=== PATIENT | male | born 1985 | race African-American/Black ===

== ENCOUNTER 2016-06-09 20:10 | Observation (INO) | payer BC ==
[~2016-06-09] VITALS: Ht 167.6 cm; Wt 119.5 kg
[2016-06-09] MEDS ORDERED: SODIUM CHLORIDE 0.9% 1000ML 1,000 ML IV STA (20:28)
[2016-06-09] MEDS ORDERED: ONDANSETRON INJ 2 MG/ML 2 ML VIAL IV STA (20:28)
[2016-06-09] MEDS ORDERED: KETOROLAC TROMETHAMINE 30 MG/ML VIAL IV STA (20:34)
[2016-06-09] MEDS: HYDROmorphone INJ 1 MG/ML SYR IV PRN ×3 (20:53→22:53)
[2016-06-09 21:12] LABS: BASO % 0.1 %; BASO ABS # 0.01 K/uL (0-0.2); COMPLETE YES; EOS % 0.5 %; HEMATOCRIT 45.1 % (42-52); IG% 0.2 %; LYMPH % 13.5 %; LYMPH ABS # 1.65 K/uL (1.2-3.4); MEAN CELL VOLUME 83.5 fL (80-100); MEAN CORPUSCULAR HEMOGLOBIN 30.2 pg (25-34); MEAN CORPUSCULAR HGB CONC 36.1 g/dl (32-36); MEAN PLATELET VOLUME 9.7 fL (7.4-10.4); MONO % 7.2 %; NEUT % 78.5 %; PLATELET COUNT 236 K/uL (130-400)
[2016-06-09 21:29] LABS: BUN/CREATININE RATIO 13.5 (10-20); CALCIUM 9.1 mg/dl (8.5-10.1); CREATININE 0.99 mg/dl (0.60-1.40); POTASSIUM 3.7 mmol/L (3.5-5.1)
--- NOTE | 2016-06-09 21:45 | DIAGNOSTIC IMAGING REPORT ---
Right upper quadrant ultrasound GALLBLADDER-ABD LIMITED CLINICAL HISTORY: RUQ, epigastric abd pain nausea TECHNIQUE: Ultrasound COMPARISON STUDY: None FINDINGS: Gallbladder is normal. Common bile duct 6 mm. Liver demonstrates fatty infiltration. Pancreas and right kidney are normal. IMPRESSION: Fatty infiltration of liver. Otherwise negative study Electronically signed by: Juan Ba M.D. 06/09/2016 9:43 PM Dictated Date/Time: 06/09/2016 9:42 PM
[2016-06-09] MEDS ORDERED: OPTIRAY 320 IV PRN (23:00)
--- NOTE | 2016-06-09 23:16 | DIAGNOSTIC IMAGING REPORT ---
CT SCAN OF THE ABDOMEN AND PELVIS WITH IV CONTRAST CLINICAL HISTORY: Vomiting. Upper abdominal pain. COMPARISON STUDY: Abdominal ultrasound dated 06/09/2016. TECHNIQUE: Following the IV administration of 115 cc of Optiray 320, CT scan of the abdomen and pelvis is performed from the lung bases to the proximal femora. Images are reviewed in the axial, sagittal, and coronal planes. IV contrast was administered without complication. Automated dose control exposure was utilized. CT DOSE: 1201.79 mGy.cm FINDINGS: Lung bases: The heart is normal in size and without pericardial effusion. The lung bases are clear. There is a tiny hiatal hernia. Liver: The contrast-enhanced liver is enlarged, measuring 22 cm in length. The liver demonstrates diffusely diminished attenuation consistent with hepatic steatosis. Fatty sparing is noted adjacent to gallbladder fossa. There is no intrahepatic biliary ductal dilatation. The hepatic veins and portal veins are patent. Gallbladder: Unremarkable. Spleen: Normal in size and attenuation. Pancreas: Unremarkable. Adrenal glands: Unremarkable. Kidneys: The contrast enhanced kidneys are normal in size and without hydronephrosis. The kidneys enhance symmetrically. Abdominal vasculature: The abdominal aorta is normal in course and caliber. Bowel: The small bowel and colon are normal in course and caliber. The distal appendix is mildly distended and fluid-filled, measuring up to 1.3 cm in diameter as seen on image #289. There is minimal periappendiceal inflammatory stranding. Peritoneum: There is no intraperitoneal free air or abdominal ascites. There is a small fat-containing umbilical hernia. Lymphadenopathy: None. Pelvic viscera: The bladder, prostate, and seminal vesicles are normal as visualized. Skeletal structures: No lytic or blastic lesions are seen. IMPRESSION: 1. Findings are concerning for mild acute appendicitis. Surgical consultation is advised. 2. No intraperitoneal free air is identified and there is no evidence of abscess. 3. Hepatomegaly and hepatic steatosis. Electronically signed by: Sukhdev Richards M.D. 06/09/2016 11:15 PM Dictated Date/Time: 06/09/2016 11:09 PM
[2016-06-09] MEDS ORDERED: SODIUM CHLORIDE 0.9% 1000ML 2,000 ML IV STA (23:31)
[2016-06-09] MEDS ORDERED: CEFOXITIN SOD 2 GM VIAL IV STA (23:37)
[2016-06-10] VITALS (11 sets, daily range): BP systolic 101–123; BP diastolic 61–73; PULSE 79–111; TEMP 36.6–37.2; O2SAT 93–100; Ht 167.6 cm; Wt 119.5 kg
[2016-06-10] MEDS: HYDROmorphone INJ 1 MG/ML SYR IV PRN (00:15)
[2016-06-10] MEDS ORDERED: BUPIVACAINE/EPINEPHRINE 0.5% MPF 1:200,000 30 ML VIAL ONE (00:18)
--- NOTE | 2016-06-10 00:26 | History and Physical ---
History & Physical Date Jun 10, 2016. Chief Complaint Abdominal pain History of Present Illness The patient is a 30 year old male with appendicitis. He has complaints of worsening abdominal pain since last night. His pain got worse this morning with sharp epigastric and RUQ abdominal pains. He has never experienced pain like this before. The patient rates his pain as a 9/10 in severity. He is also experiencing nausea. He had two episodes of vomiting today. He denies any sick contacts. He denies any personal history of abdominal surgery. Pt denies LOC, headache, fevers, chills, diaphoresis, visual changes, neck pain, chest pain, breathing difficulties, back pain, melena, hematochezia, urinary symptoms, numbness, weakness, lymphadenopathy, rash, or other complaints. CT scan shows a 1.3 cm appendix with inflammatory changes. Past Medical/Surgical History Medical Problems: (1) No significant medical problems Additional History Hepatic Disease: No Endocrine Disorder: No Kidney Disease: No Hypertension: No Heart Disease: No Bleeding Tendencies: No Infectious Diseases: No Allergies Coded Allergies: No Known Allergies (Unverified , 06/09/16) Home Medications No Active Prescriptions or Reported Meds Physical Examination Skin: warm/dry, no rash Eyes: normal inspection, EOMI, sclerae normal ENT: normal ENT inspection Head: normocephalic, atraumatic Neck: supple, no adenopathy, trachea midline Respiratory/Chest: lungs clear Cardiovascular: regular rate, rhythm, no edema, no murmur Abdomen / GI: normal bowel sounds, + pertinent finding (RLQ tenderness) Back: normal inspection Extremities: normal inspection Genitourinary - Male: normal male genitalia Neurologic/Psych: no motor/sensory deficits, alert, normal reflexes, oriented x 3 Addiitonal Comments: CT SCAN OF THE ABDOMEN AND PELVIS WITH IV CONTRAST CLINICAL HISTORY: Vomiting. Upper abdominal pain. COMPARISON STUDY: Abdominal ultrasound dated 06/09/2016. TECHNIQUE: Following the IV administration of 115 cc of Optiray 320, CT scan of the abdomen and pelvis is performed from the lung bases to the proximal femora. Images are reviewed in the axial, sagittal, and coronal planes. IV contrast was administered without complication. Automated dose control exposure was utilized. CT DOSE: 1201.79 mGy.cm FINDINGS: Lung bases: The heart is normal in size and without pericardial effusion. The lung bases are clear. There is a tiny hiatal hernia. Liver: The contrast-enhanced liver is enlarged, measuring 22 cm in length. The liver demonstrates diffusely diminished attenuation consistent with hepatic steatosis. Fatty sparing is noted adjacent to gallbladder fossa. There is no intrahepatic biliary ductal dilatation. The hepatic veins and portal veins are patent. Gallbladder: Unremarkable. Spleen: Normal in size and attenuation. Pancreas: Unremarkable. Adrenal glands: Unremarkable. Kidneys: The contrast enhanced kidneys are normal in size and without hydronephrosis. The kidneys enhance symmetrically. Abdominal vasculature: The abdominal aorta is normal in course and caliber. Bowel: The small bowel and colon are normal in course and caliber. The distal appendix is mildly distended and fluid-filled, measuring up to 1.3 cm in diameter as seen on image #289. There is minimal periappendiceal inflammatory stranding. Peritoneum: There is no intraperitoneal free air or abdominal ascites. There is a small fat-containing umbilical hernia. Lymphadenopathy: None. Pelvic viscera: The bladder, prostate, and seminal vesicles are normal as visualized. Skeletal structures: No lytic or blastic lesions are seen. IMPRESSION: 1. Findings are concerning for mild acute appendicitis. Surgical consultation is advised. 2. No intraperitoneal free air is identified and there is no evidence of abscess. 3. Hepatomegaly and hepatic steatosis. Diagnosis Appendicitis ASA Classification: ASA Class II Plan of Treatment -IVF -IV abx -to OR for lap appendectomy
[2016-06-10] MEDS ORDERED: MoRPHine SULFATE 2 MG/ML CARP IV PRN (00:30)
[2016-06-10] MEDS ORDERED: PROMETHAZINE HCL INJ 25 MG in SODIUM CHLORIDE 0.9% 50ML 50 ML IV PRN (00:30)
[2016-06-10] MEDS ORDERED: ACETAMINOPHEN 325 MG TAB PO PRN (00:30)
[2016-06-10] MEDS ORDERED: ONDANSETRON INJ 2 MG/ML 2 ML VIAL IV PRN ×2 (00:30→02:45)
[2016-06-10] MEDS ORDERED: ROCURONIUM BROMID 50MG/5ML SYR ONE (00:43)
[2016-06-10] MEDS ORDERED: LIDOCAINE HCL 2% 2 ML VIAL (20MG/ML) ONE (00:43)
[2016-06-10] MEDS ORDERED: ONDANSETRON INJ 2 MG/ML 2 ML VIAL ONE (00:43)
[2016-06-10] MEDS ORDERED: PROPOFOL IV EMULSION 10 MG/ML 20 ML VIAL IV ONE (00:43)
[2016-06-10] MEDS ORDERED: MIDAZOLAM HCL 1 MG/ML 2ML VIAL ONE (00:44)
[2016-06-10] MEDS ORDERED: NEOSTIGMINE METHYLSULFATE 5 MG/5 ML SYR ONE (00:44)
[2016-06-10] MEDS ORDERED: FENTANYL CITRATE INJ 50 MCG/1 ML 2 ML VIAL ONE ×2 (00:45→01:21)
--- NOTE | 2016-06-10 02:08 | [facility] Post Operative Brief Note ---
Immediate Operative Summary Operative Date Jun 10, 2016. Pre-Operative Diagnosis Acute appendicitis Post-Operative Diagnosis Acute appendicitis Procedure(s) Performed Laparoscopic Appendectomy Surgeon Dr. Zamora Web Application Dev Specialist Surgeon(s) none Estimated Blood Loss 50cc Findings retrocecal appendicitis Specimens A: Appendix Drains none Anesthesia GETA w/marcaine Complication(s) None Disposition Recovery Room / PACU
[2016-06-10] MEDS ORDERED: IV FLUIDS COMPLETED PRN (02:15)
--- NOTE | 2016-06-10 02:15 | EMERGENCY ROOM VISIT NOTE ---
History Report prepared by Munira: Nikki Ramos Under the Supervision of: Dr. Foster Horvath M.D. First contact with patient: 20:15 Chief Complaint: ABDOMINAL PAIN Stated Complaint: AB PAIN Nursing Triage Summary: patient has been having abd pain since yesterday morning. was at [facility] for concert and vomit x2, brought in by EMS History of Present Illness The patient is a 30 year old male who presents to the Emergency Room with complaints of worsening abdominal pain since last night. The patient states, "I think I ate something bad yesterday." Last night while he was sleeping he woke up with vomit in his mouth and went back to sleep. He woke up this morning with sharp epigastric and RUQ abdominal pains. He has never experienced pain like this before. The patient rates his pain as a 9/10 in severity. He is also experiencing nausea. He had two episodes of vomiting today. He felt better after vomiting. He was able to eat a [employer] sandwich for lunch and his symptoms did not seem to worsen after eating. He has never had pain like this before. The patient had some diarrhea earlier this morning that has resolved. He denies any sick contacts. He denies any personal history of abdominal surgery. Pt denies LOC, headache, fevers, chills, diaphoresis, visual changes, neck pain, chest pain, breathing difficulties, back pain, melena, hematochezia, urinary symptoms, numbness, weakness, lymphadenopathy, rash, or other complaints. Source of History: patient Onset: last night Position: abdomen Symptom Intensity: 9/10 Quality: sharp Timing: worsening Modifying Factors (Relieving): other (vomiting) Associated Symptoms: + diarrhea, + nausea, + vomiting Review of Systems See HPI for pertinent positives and negatives. A total of ten systems were reviewed and were otherwise negative. Past Medical & Surgical Medical Problems: (1) Appendicitis (2) No significant medical problems Family History Diabetes mellitus Heart disease Hypertension Stroke Social History Smoking Status: Never Smoker Marital Status: Housing Status: lives with significant other Current/Historical Medications No Active Prescriptions or Reported Meds Allergies Coded Allergies: No Known Allergies (Unverified , 06/09/16) Physical Exam Vital Signs Date Time Temp Pulse Resp B/P Pulse Ox O2 Delivery O2 Flow Rate FiO2 06/10/16 00:41 91 16 126/71 99 06/09/16 22:15 98 18 120/66 98 Room Air 06/09/16 21:11 87 06/09/16 20:31 36.8 89 18 136/100 98 Room Air Physical Exam GENERAL: Awake, alert, very uncomfortable-appearing, in no distress HENT: Normocephalic, atraumatic. Oropharynx unremarkable. EYES: Normal conjunctiva. Sclera non-icteric. NECK: Supple. No nuchal rigidity. FROM. No JVD. RESPIRATORY: Clear to auscultation. CARDIAC: Regular rate, normal rhythm. Extremities warm and well perfused. Pulses equal. ABDOMEN: Soft, non-distended. RUQ and epigastric tenderness. No rebound or guarding. No masses. RECTAL: Deferred. MUSCULOSKELETAL: Chest examination reveals no tenderness. The back is symmetrical on inspection without obvious abnormality. There is no CVA tenderness to palpation. No joint edema. LOWER EXTREMITIES: Calves are equal size bilaterally and non-tender. No edema. No discoloration. NEURO: Normal sensorium. No sensory or motor deficits noted. SKIN: No rash or jaundice noted. Medical Decision & Procedures ER Provider Diagnostic Interpretation: Radiology results as stated below per my review and radiologist interpretation: Right upper quadrant ultrasound GALLBLADDER-ABD LIMITED CLINICAL HISTORY: RUQ, epigastric abd pain nausea TECHNIQUE: Ultrasound COMPARISON STUDY: None FINDINGS: Gallbladder is normal. Common bile duct 6 mm. Liver demonstrates fatty infiltration. Pancreas and right kidney are normal. IMPRESSION: Fatty infiltration of liver. Otherwise negative study Electronically signed by: Juan Ba M.D. 06/09/2016 9:43 PM Dictated Date/Time: 06/09/2016 9:42 PM Laboratory Results 06/09/16 20:57 Red Blood Count 5.40, Mean Corpuscular Volume 83.5, Mean Corpuscular Hemoglobin 30.2, Mean Corpuscular Hemoglobin Concent 36.1, Mean Platelet Volume 9.7, Neutrophils (%) (Auto) 78.5, Lymphocytes (%) (Auto) 13.5, Monocytes (%) (Auto) 7.2, Eosinophils (%) (Auto) 0.5, Basophils (%) (Auto) 0.1, Neutrophils # (Auto) 9.58, Lymphocytes # (Auto) 1.65, Monocytes # (Auto) 0.88, Eosinophils # (Auto) 0.06, Basophils # (Auto) 0.01 06/09/16 20:57 Test 06/09/16 20:57 White Blood Count 12.20 K/uL (4.8-10.8) Red Blood Count 5.40 M/uL (4.7-6.1) Hemoglobin 16.3 g/dL (14.0-18.0) Hematocrit 45.1 % (42-52) Mean Corpuscular Volume 83.5 fL (80-100) Mean Corpuscular Hemoglobin 30.2 pg (25-34) Mean Corpuscular Hemoglobin Concent 36.1 g/dl (32-36) Platelet Count 236 K/uL (130-400) Mean Platelet Volume 9.7 fL (7.4-10.4) Neutrophils (%) (Auto) 78.5 % Lymphocytes (%) (Auto) 13.5 % Monocytes (%) (Auto) 7.2 % Eosinophils (%) (Auto) 0.5 % Basophils (%) (Auto) 0.1 % Neutrophils # (Auto) 9.58 K/uL (1.4-6.5) Lymphocytes # (Auto) 1.65 K/uL (1.2-3.4) Monocytes # (Auto) 0.88 K/uL (0.11-0.59) Eosinophils # (Auto) 0.06 K/uL (0-0.5) Basophils # (Auto) 0.01 K/uL (0-0.2) RDW Standard Deviation 40.4 fL (36.4-46.3) RDW Coefficient of Variation 13.5 % (11.5-14.5) Immature Granulocyte % (Auto) 0.2 % Immature Granulocyte # (Auto) 0.02 K/uL (0.00-0.02) Anion Gap 8.0 mmol/L (3-11) Est Creatinine Clear Calc Drug Dose 128.1 ml/min Estimated GFR () 118.8 Estimated GFR (Non- 102.5 BUN/Creatinine Ratio 13.5 (10-20) Calcium Level 9.1 mg/dl (8.5-10.1) Total Bilirubin 0.6 mg/dl (0.2-1) Direct Bilirubin 0.1 mg/dl (0-0.2) Aspartate Amino Transf (AST/SGOT) 32 U/L (15-37) Alanine Aminotransferase (ALT/SGPT) 87 U/L (12-78) Alkaline Phosphatase 75 U/L (45-117) Total Protein 7.9 gm/dl (6.4-8.2) Albumin 4.2 gm/dl (3.4-5.0) Lipase 91 U/L (73-393) Laboratory results reviewed by me Medications Administered Medications (Trade) Dose Ordered Sig/Francy Route Start Time Stop Time Status Last Admin Dose Admin Sodium Chloride (Nss 1000ml) 1,000 ml @ 999 mls/hr Q1H1M STAT IV 06/09/16 20:28 06/09/16 21:28 DC 06/09/16 20:28 999 MLS/HR Ondansetron HCl (Zofran Inj) 4 mg NOW STAT IV 06/09/16 20:28 06/09/16 20:30 DC 06/09/16 20:53 4 MG Hydromorphone HCl (Dilaudid Inj) 1 mg Q15M PRN IV 06/09/16 20:30 06/10/16 01:29 DC 06/10/16 00:15 1 MG Ketorolac Tromethamine 10 mg 10 mg NOW STAT IV 06/09/16 20:34 06/09/16 20:35 DC 06/09/16 20:53 10 MG Sodium Chloride (Nss 1000ml) 2,000 ml @ 999 mls/hr Q2H1M STAT IV 06/09/16 23:31 06/10/16 01:29 DC 06/09/16 23:55 999 MLS/HR Cefoxitin Sodium (Mefoxin IV) 2,000 mg NOW STAT IV 06/09/16 23:37 06/09/16 23:38 DC 06/09/16 23:55 2,000 MG Bupivacaine HCl/ Epinephrine Bitart (Sensorcaine/ Epinephrine 0.5% Mpf 1:200,000) 30 ml STK-MED ONCE .ROUTE 06/10/16 00:18 06/10/16 00:22 DC 06/10/16 00:18 20 ML ED Course 2014: The patient was evaluated in room B3B. A complete history and physical exam was performed. 2027: Zofran 4 mg IV, NSS 1000 ml @ 999 mls/hr IV 2029: Dilaudid 1 mg IV - PRN 2033: Toradol 10 mg IV 2146: I reassessed the patient and he is feeling better. 2248: I updated the patient on his US results. He will be going for CT. The patient verbalized agreement. Medical Decision Triage Nursing notes reviewed. The patient's presentation and history were concerning for abdominal pain. Etiologies such as biliary pathology, appendicitis, diverticulitis, obstruction , inflammatory bowel disease, renal colic, PUD, pancreatitis, mesenteric ischemia, aortic pathology, infections, genitourinary, UTI, perforated viscus, as well as others were entertained. The patient was evaluated. He was uncomfortable. He was given Zofran, saline, and Dilaudid. On reassessment he was feeling better. The patient had a mild leukocytosis on CBC. Chemistry panel and remainder of labs are unremarkable. The patient underwent ultrasound imaging which was negative. On reassessment he was feeling increased pain again. He had tenderness on the right side of his abdomen, mostly upper. The patient underwent CT imaging and this was concerning for early appendicitis. The patient was given an additional 2 L of fluid. He was kept nothing by mouth. Consultation was made with general surgery. Mefoxin was requested and this was ordered. The patient was evaluated in the Emergency Room and admitted for further treatment of his acute appendicitis. The chart was completed utilizing [employer] Speech voice recognition software. Grammatical errors, random word insertions, pronoun errors, and incomplete sentences are an occasional consequence of this system due to software limitations, ambient noise, and hardware issues. Any formal questions or concerns about the content, text, or information contained within the body of this dictation should be directly addressed to the physician for clarification. [place] Drug Monitoring Program Search Results: no issues identified Impression Primary Impression: Appendicitis Scribe Attestation The scribe's documentation has been prepared under my direction and personally reviewed by me in its entirety. I confirm that the note above accurately reflects all work, treatment, procedures, and medical decision making performed by me. Departure Information Dispostion Being Evaluated By Surgeon Prescriptions No Active Prescriptions or Reported Meds Referrals No Doctor, Assigned (PCP) Patient Instructions [facility]
--- NOTE | 2016-06-10 02:43 | Anesthesiology Progress Note ---
Anesthesia Post Op Note Date & Time Jun 10, 2016 at 02:43 Vital Signs Pain Intensity: 6.0 Vital Signs Past 12 Hours Date Time Temp Pulse Resp B/P Pulse Ox O2 Delivery O2 Flow Rate FiO2 06/10/16 00:41 91 16 126/71 99 06/09/16 22:15 98 18 120/66 98 Room Air 06/09/16 21:11 87 06/09/16 20:31 36.8 89 18 136/100 98 Room Air Notes Mental Status: alert / awake / arousable, participated in evaluation Pt Amnestic to Procedure: Yes Nausea / Vomiting: adequately controlled Pain: adequately controlled Airway Patency, RR, SpO2: stable & adequate BP & HR: stable & adequate Hydration State: stable & adequate Anesthetic Complications: no major complications apparent
[2016-06-10] MEDS ORDERED: FENTANYL CITRATE INJ 50 MCG/1 ML 2 ML VIAL IV PRN (02:45)
[2016-06-10] MEDS ORDERED: ATROPINE SULFATE 0.1 MG/ML 5ML SYR IV PRN (02:45)
[2016-06-10] MEDS ORDERED: KETOROLAC TROMETHAMINE 30 MG/ML VIAL IV. PRN (02:45)
[2016-06-10] MEDS ORDERED: EpHEDrine SULFATE INJ 50 MG/ML AMP IV PRN (02:45)
--- NOTE | 2016-06-10 02:59 | OPERATIVE REPORT ---
DATE OF OPERATION: 06/10/2016 PREOPERATIVE DIAGNOSIS: Acute appendicitis. POSTOPERATIVE DIAGNOSIS: Acute retrocecal appendicitis. PROCEDURE PERFORMED: Laparoscopic appendectomy. SURGEON: Dr. Roberto Zamora. ADDRESSER: None. ANESTHESIA: General endotracheal with 0.5% Marcaine with epinephrine local. ESTIMATED BLOOD LOSS: 50 mL COMPLICATIONS: None. SPECIMENS: Appendix to pathology. INDICATION FOR PROCEDURE: This is a 30-year-old male who came in with diffuse abdominal pain, underwent a workup where a CT scan showed a dilated appendix with periappendiceal inflammation. He was counseled to undergo laparoscopic appendectomy. We talked about the risk of an open procedure, bleeding, blood vessel or bowel damage, abscess requiring drainage, and possible blood transfusion. He understands this and wishes to proceed. DESCRIPTION OF PROCEDURE: The patient was taken to the OR and underwent excellent general endotracheal anesthesia. His abdomen was prepped and draped in normal sterile fashion. A transverse supraumbilical incision was made and a Veress needle was inserted. Good pneumoperitoneum was achieved to 15 mmHg pressure. A visualized 11 port was placed. He had a large amount of intraabdominal fat. His cecum was identified. No obvious appendix was seen. A 5 suprapubic, a 5 right upper quadrant, and a 12 left lower quadrant ports were placed in normal fashion. The patient was then placed head down and rolled to the left. The cecum was found and the tenia was traced to appendix which was retrocecal. With tension on the base of the appendix, Harmonic scalpel was used to dissect the appendix free from its retrocecal position. Appendix was brought out and Harmonic scalpel was used to take down the mesoappendix. There was some bleeding which was somewhat difficult to control but was controlled using the Harmonic scalpel. Once this was done, the Harmonic scalpel was used to take the rest of the mesoappendix down to the base. The appendix was then transected and brought out with an Endobag. There was, in dissecting the appendix free from its retrocecal position, a tear made in the appendix, but the entire appendix was brought out with an Endobag and sent for pathologic evaluation. Then, the abdomen was irrigated out with 2 liters of saline. There was some bloody fluid. There was no active bleeding. The staple line appeared intact without any active bleeding. There was no more bleeding from the mesoappendix. Pelvis was normal. The terminal ileum also appeared to be normal. Once this was ensured, the ports were removed and pneumoperitoneum was decompressed. Vicryl was used to close the fascia, Vicryl was used to close the skin. Steri-Strips and benzoin were used to reinforce the incision. Sterile dressings were applied. The patient tolerated the procedure well with no complications, sent to post-recovery for a period of observation, and will be sent to floor for his care. I attest to the content of the Intraoperative Record and any orders documented therein. Any exceptio ns are noted below.
[2016-06-10] MEDS ORDERED: MoRPHine SULFATE 4 MG/ML 1 ML CARP\\VIAL IV PRN (04:00)
[2016-06-10] MEDS: LACTATED RINGER'S 1000ML 1,000 ML IV SCH ×3 (04:02→23:27)
[2016-06-10] MEDS: CEFOXITIN IV 2,000 MG in DEXTROSE 5% 50ML 50 ML IV SCH ×3 (06:37→21:46)
[2016-06-10] MEDS: OXYCODONE/ACETAMINOPHEN 5-325 TAB PO PRN ×2 (07:51→12:01)
[2016-06-10 09:39] LABS: EOS % 0.1 %; HEMATOCRIT 43.4 % (42-52); IG% 0.2 %; LYMPH % 5.2 %; LYMPH ABS # 0.84 K/uL (1.2-3.4); MEAN CELL VOLUME 83.9 fL (80-100); MEAN CORPUSCULAR HEMOGLOBIN 30.9 pg (25-34); MEAN PLATELET VOLUME 9.7 fL (7.4-10.4); NEUT % 86.5 %; PLATELET COUNT 227 K/uL (130-400); RED BLOOD COUNT 5.17 M/uL (4.7-6.1); WHITE BLOOD COUNT 16.09 K/uL (4.8-10.8)
[2016-06-10 09:45] LABS: COMPLETE YES; MEAN CORPUSCULAR HGB CONC 36.9 g/dl (32-36)
[2016-06-10] MEDS ORDERED: HYDROmorphone INJ 0.5 MG/0.5 ML SYR IV STA (09:52)
[2016-06-10 09:59] LABS: CALCIUM 8.5 mg/dl (8.5-10.1); CREATININE 0.96 mg/dl (0.60-1.40)
[2016-06-10] MEDS ORDERED: HYDROmorphone INJ 1 MG/ML SYR IV PRN (10:00)
[2016-06-10] MEDS ORDERED: HYDROmorphone INJ 0.5 MG/0.5 ML SYR IV PRN (10:00)
--- NOTE | 2016-06-10 10:49 | Surgery Progress Note ---
Surgery Progress Note Date of Service Jun 10, 2016. Subjective Post OP Day: 1 + complaints (chest pain which is better), + diet (liquids), + feeling well, + flatus, + pain controlled, No nausea, No vomiting Objective Vital Signs: Date Time Temp Pulse Resp B/P Pulse Ox O2 Delivery O2 Flow Rate FiO2 06/10/16 08:37 37.0 111 23 110/73 95 Room Air 06/10/16 07:25 Room Air 06/10/16 06:39 37.2 109 16 101/64 96 Room Air 06/10/16 05:40 36.8 102 16 103/63 100 Nasal Cannula 2.0 06/10/16 04:39 36.7 93 17 105/61 98 Nasal Cannula 2.0 06/10/16 04:10 36.6 85 16 112/72 99 Nasal Cannula 06/10/16 03:45 Nasal Cannula 2.0 06/10/16 03:45 36.7 79 16 104/66 Nasal Cannula 2.0 06/10/16 03:45 Nasal Cannula 2.0 06/10/16 03:40 36.7 79 16 104/66 96 Nasal Cannula 2.0 06/10/16 03:30 36.5 91 18 109/73 100 Nasal Cannula 3 06/10/16 03:15 36.5 89 20 128/71 100 Nasal Cannula 3 06/10/16 03:05 36.5 95 20 132/81 100 Nasal Cannula 3 06/10/16 02:55 93 20 110/70 100 Nasal Cannula 3 06/10/16 02:45 90 20 116/62 100 Mask 10 06/10/16 02:35 36.2 90 20 99/59 99 Mask 10 06/10/16 00:41 91 16 126/71 99 06/09/16 22:15 98 18 120/66 98 Room Air 06/09/16 21:11 87 06/09/16 20:31 36.8 89 18 136/100 98 Room Air General Appearance: WD/WN, no apparent distress Head: normocephalic, atraumatic Neck: supple, trachea midline Respiratory/Chest: lungs clear Cardiovascular: regular rate, rhythm Abdomen: normal bowel sounds, soft, + distended, + tenderness Incision(s): clean, intact, findings (some drainage) Extremities: non-tender, no pedal edema Laboratory Results: Results Past 24 Hours Test 06/09/16 20:57 06/10/16 09:32 Range/Units White Blood Count 12.20 16.09 4.8-10.8 K/uL Red Blood Count 5.40 5.17 4.7-6.1 M/uL Hemoglobin 16.3 16.0 14.0-18.0 g/dL Hematocrit 45.1 43.4 42-52 % Mean Corpuscular Volume 83.5 83.9 80-100 fL Mean Corpuscular Hemoglobin 30.2 30.9 25-34 pg Mean Corpuscular Hemoglobin Concent 36.1 36.9 32-36 g/dl Platelet Count 236 227 130-400 K/uL Mean Platelet Volume 9.7 9.7 7.4-10.4 fL Neutrophils (%) (Auto) 78.5 86.5 % Lymphocytes (%) (Auto) 13.5 5.2 % Monocytes (%) (Auto) 7.2 8.0 % Eosinophils (%) (Auto) 0.5 0.1 % Basophils (%) (Auto) 0.1 0.0 % Neutrophils # (Auto) 9.58 13.93 1.4-6.5 K/uL Lymphocytes # (Auto) 1.65 0.84 1.2-3.4 K/uL Monocytes # (Auto) 0.88 1.28 0.11-0.59 K/uL Eosinophils # (Auto) 0.06 0.01 0-0.5 K/uL Basophils # (Auto) 0.01 0.00 0-0.2 K/uL RDW Standard Deviation 40.4 41.7 36.4-46.3 fL RDW Coefficient of Variation 13.5 13.6 11.5-14.5 % Immature Granulocyte % (Auto) 0.2 0.2 % Immature Granulocyte # (Auto) 0.02 0.03 0.00-0.02 K/uL Sodium Level 138 137 136-145 mmol/L Potassium Level 3.7 4.0 3.5-5.1 mmol/L Chloride Level 102 103 98-107 mmol/L Carbon Dioxide Level 28 26 21-32 mmol/L Anion Gap 8.0 8.0 3-11 mmol/L Blood Urea Nitrogen 13 10 7-18 mg/dl Creatinine 0.99 0.96 0.60-1.40 mg/dl Est Creatinine Clear Calc Drug Dose 128.1 138.2 ml/min Estimated GFR () 118.8 123.3 Estimated GFR (Non- 102.5 106.4 BUN/Creatinine Ratio 13.5 10.0 10-20 Random Glucose 99 104 70-99 mg/dl Calcium Level 9.1 8.5 8.5-10.1 mg/dl Total Bilirubin 0.6 0.2-1 mg/dl Direct Bilirubin 0.1 0-0.2 mg/dl Aspartate Amino Transf (AST/SGOT) 32 15-37 U/L Alanine Aminotransferase (ALT/SGPT) 87 12-78 U/L Alkaline Phosphatase 75 45-117 U/L Total Protein 7.9 6.4-8.2 gm/dl Albumin 4.2 3.4-5.0 gm/dl Lipase 91 73-393 U/L Troponin I < 0.015 0-0.045 ng/ml Assessment & Plan s/p appendectomy -complains of chest pain; medical consult but doubt cardiac -H/H down slightly -WBC elevated; con't abx -slow progress -if rules out then possibly home in AM
--- NOTE | 2016-06-10 16:13 | CONSULTATION REPORT ---
DATE OF CONSULTATION: 06/10/2016 DATE OF CONSULTATION: 06/10/2016. REASON FOR CONSULTATION: Chest pain. HISTORY OF PRESENT ILLNESS: Mr. Richardson is a 30-year-old male who underwent an emergency appendectomy last p.m. The patient typically has no significant past medical history and does not take any medications. The patient reportedly was up to [place] from the area for a concert. He developed abdominal pain, nausea, vomiting, presented to the ER where he was diagnosed with acute appendicitis by abdominal CT scan. He was taken to the operating room and is doing well postoperatively. This morning the patient developed some fleeting abdominal pain 3-5 seconds associated with some mild shortness breath, also 3-5 seconds and given that he does have a family history of heart disease a medical consultation was obtained. PAST MEDICAL HISTORY: As mentioned is none. FAMILY HISTORY: For diabetes, heart disease, hypertension and stroke. SOCIAL HISTORY: Does not smoke, does not drink. He is . REVIEW OF SYSTEMS: Other than the GI system symptoms that he presented with he is unremarkable. Additionally the patient does exercise at a gym. He did so last week without any evidence of chest pain, pressure, shortness of breath, nausea or vomiting. PHYSICAL EXAMINATION: GENERAL: He is a pleasant gentleman. He is standing in his room. He is in no discomfort. VITAL SIGNS: Temperature is afebrile, pulse is 104, respiration rate 17, BP 123/72, O2 sat 96 on room air. HEAD, EYES, EARS, NOSE, AND THROAT: PERRL, EOMI. NECK: Without lymphadenopathy. Trachea is midline. HEART: Regular without murmurs, clicks, rubs or gallops. LUNGS: Clear without wheezes or crackles. Good air movement. Maybe slightly tachycardic with his heart, but not abnormally so. ABDOMEN: With hypoactive bowel sounds, soft, mildly discomfort to examination. No rigidity, no guarding. EXTREMITIES: Without cyanosis, clubbing or edema. LABORATORY DATA: EKG showed normal sinus rhythm without acute ST or T-wave changes. Serology does show a negative troponin. Normal electrolytes with minor elevation of glucose to 104, white count of 16, H\T\H is 16 and 43 showing no blood loss. ASSESSMENT: Likely chest discomfort related to the events occurring, whether it be from reflux or from diaphragmatic irritation from his laparoscopic appendectomy. Plan will be supportive care, pain management for his abdominal pain. Thank you for this consultation. JESSICA
[2016-06-11] MEDS: OXYCODONE/ACETAMINOPHEN 5-325 TAB PO PRN ×3 (03:08→13:09)
[2016-06-11 03:43] VITALS: BP 140/88; PULSE 102; TEMP 37.2; O2SAT 94
[2016-06-11 06:52] VITALS: BP 118/72; PULSE 103; TEMP 37; O2SAT 93
[2016-06-11] MEDS: LACTATED RINGER'S 1000ML 1,000 ML IV SCH (09:16)
[2016-06-11] MEDS ORDERED: AMOX875T PO (10:02)
[2016-06-11] MEDS ORDERED: OXYC-57 PO (10:02)
--- NOTE | 2016-06-11 10:02 | Surgery Progress Note ---
Surgery Progress Note Date of Service Jun 11, 2016. Subjective Post OP Day: 2 + diet (regular), + feeling well, + flatus, No complaints, No nausea, No vomiting Objective Vital Signs: Date Time Temp Pulse Resp B/P Pulse Ox O2 Delivery O2 Flow Rate FiO2 06/11/16 06:52 37.0 103 18 118/72 93 Room Air 06/11/16 03:43 37.2 102 17 140/88 94 Room Air 06/10/16 23:15 Room Air 06/10/16 23:03 37.0 95 16 117/71 93 Room Air 06/10/16 16:00 96 Room Air 06/10/16 15:10 37.0 104 17 123/72 96 Room Air General Appearance: WD/WN, no apparent distress Head: normocephalic, atraumatic Neck: supple, trachea midline Respiratory/Chest: lungs clear Cardiovascular: regular rate, rhythm Abdomen: normal bowel sounds, non tender, non distended, soft Incision(s): clean, dry, intact Extremities: non-tender, no pedal edema Assessment & Plan s/p appendectomy -complains of chest pain; resolved, no cardiac issue -home today s/p appendectomy -complains of chest pain; medical consult but doubt cardiac -H/H down slightly -WBC elevated; con't abx -slow progress -if rules out then possibly home in AM
--- NOTE | 2016-06-11 10:08 | Discharge Instructions ---
Discharge Instructions Date of Service Jun 11, 2016. Admission Reason for Admission: Appendicitis Discharge Discharge Diagnosis / Problem: s/p laparoscopic appendectomy Discharge Goals Goal(s): Therapeutic intervention Activity Recommendations Activity Limitations: per Instructions/Follow-up section Lifting Limitations: no more than 25 pounds Exercise/Sports Limitations: as tolerated (limited as above), gradually increase as tolerated May Resume Sexual Activity: when tolerated, after one week Shower/Bathe: no limitations (avoids baths for 2 weeks) Driving or Machine Use: resume 3 days after discharge (as long as not taking narcotics) . Instructions / Follow-Up Instructions / Follow-Up PCP in 1 week any questions [phone] Current Hospital Diet Patient's current hospital diet: Regular Diet Discharge Diet Recommended Diet: Regular Diet Procedures Procedures Performed: Laparoscopic Appendectomy Pending Studies Studies pending at discharge: no Work Instructions Return To Work: after follow-up (2 weeks; return on light duty as tolerated) Medical Emergencies . Who to Call and When: Medical Emergencies: If at any time you feel your situation is an emergency, please call 911 immediately. . Non-Emergent Contact Non-Emergency issues call your: Primary Care Provider, Surgeon Call Non-Emergent contact if: temperature is above 101.5, your pain is not controlled, your pain is worsening, your pain is unusual for you, your pain is concerning you, wound has increased redness, wound has increased pain, you have any medication questions . "Provider Documentation" section prepared by Roberto Zamora. VTE Core Measure Inpt VTE Proph given/why not?: SCD's [place] Drug Monitoring Program Search Results: patient reviewed within database
--- NOTE | 2016-06-11 11:21 | Progress Note ---
Subjective Date of Service: Jun 11, 2016. Subjective no further chest pain, having flatus, pain control Review of Systems Constitutional: No chills, No fever Respiratory: No cough, No dyspnea on exertion, No shortness of breath Cardiac: No chest pain, No edema Abdomen: + pain, No constipation, No diarrhea, No nausea, No vomiting Musculoskeletal: No joint pain, No swelling Psychiatric: No anhedonism, No depression symptoms Objective Vital Signs Date Time Temp Pulse Resp B/P Pulse Ox O2 Delivery O2 Flow Rate FiO2 06/11/16 07:30 Room Air 06/11/16 06:52 37.0 103 18 118/72 93 Room Air 06/11/16 03:43 37.2 102 17 140/88 94 Room Air 06/10/16 23:15 Room Air 06/10/16 23:03 37.0 95 16 117/71 93 Room Air 06/10/16 16:00 96 Room Air 06/10/16 15:10 37.0 104 17 123/72 96 Room Air Physical Exam General Appearance: WD/WN, + mild distress Neck: supple, no JVD Respiratory/Chest: chest non-tender, lungs clear, normal breath sounds Cardiovascular: regular rate, rhythm, no murmur Abdomen: normal bowel sounds, non tender, soft Extremities: no pedal edema, no calf tenderness Neurologic/Psychiatric: alert, oriented x 3 Assessment and Plan 30 M s/p appendectomy, doing much better, no medical concern at this time surgery in charge of disposition
[2016-06-11 12:02] VITALS: BP 118/72; PULSE 103; TEMP 37; O2SAT 93
--- NOTE | 2016-06-11 12:25 | DISCHARGE SUMMARY ---
ATTENDING PHYSICIAN: Dr. Roberto Zamora. CONSULTS: Hospital medicine for chest pain. DIAGNOSIS: Acute appendicitis. PROCEDURE PERFORMED: Laparoscopic appendectomy on 06/10/2016. HISTORY OF PRESENT ILLNESS: This is a 30-year-old male who was seen in the ER with complaints of 2-3 days of abdominal pain, had a CT scan which showed an acute appendicitis. He was consented for laparoscopic appendectomy and taken to the OR for laparoscopic appendectomy. HOSPITAL COURSE: The patient was admitted, begun on IV antibiotics, taken to the OR, where he underwent a laparoscopic appendectomy. He had a retrocecal appendix which was adhered to the abdominal wall and his cecum. This was a difficult dissection, but it was able to be done laparoscopically with about 50 mL of blood loss. Postoperatively, he did fairly well, complained of some chest pain the next morning, which was atypical. Hospitalist medicine was consulted and he ruled out for any kind of cardiac source for this pain. He did well the next day and then his diet was advanced. His pain was controlled. He was ambulating and did well. He will be discharged home on postoperative day #2. DISCHARGE MEDICATIONS: Percocet 1 tablet p.o. q. 6 hours p.r.n. pain, #30; Augmentin 875 one tablet p.o. b.i.d. tablets 14. DIET: Regular as tolerated. ACTIVITIES: No strenuous activity. FOLLOW UP: In 1 week with his primary care in [facility], work excuse for 2 weeks until his wounds are healed.
== END 2016-06-11 14:38 | disposition home or self-care (01) ==
LOC: ENRESERVDT → ENRESERVTM → C.EDB 20:13 → C.MSN 06-10 00:30
PROVIDERS: ADMIT Surgery; ATTEND Surgery
DX: K35.80 Unspecified acute appendicitis (principal); Z82.49 Family history of ischemic heart disease and other diseases of the circulatory system; Z82.3 Family history of stroke